=== PATIENT | male | born 1985 | race African-American/Black ===

== ENCOUNTER 2018-08-25 15:38 | Emergency (ER) | payer BC ==
[~2018-08-25] VITALS: Ht 175.3 cm; Wt 99.3 kg
[2018-08-25 16:12] LABS: URINE BILIRUBIN NEGATIVE (Negative); URINE BLOOD NEGATIVE (Negative); URINE CLARITY CLEAR; URINE COLOR YELLOW; URINE GLUCOSE-RANDOM* NEGATIVE (Negative); URINE KETONES NEGATIVE (Negative); URINE LEUKOCYTES-REFLEX NEGATIVE (Negative); URINE NITRITE-REFLEX NEGATIVE (Negative); URINE PROTEIN (DIPSTICK) NEGATIVE (Negative); URINE SPECIFIC GRAVITY >= 1.030 (1.005-1.035); URINE UROBILINOGEN 0.2 E.U./dl (0.2-1.0)
[2018-08-25 17:02] LABS: ABSOLUTE NEUTROPHILS 3.3 thou/uL (1.4-8.2); BASOPHILS 0.9 % (0.0-2.0); HEMATOCRIT 50.8 % (42.0-52.0); HEMOGLOBIN 16.9 gm/dL (14.0-18.0); MCH 27.5 pg (26.0-34.0); MCHC 33.2 g/dL (28.0-37.0); MONOCYTES 7.2 % (1.0-8.0); PLATELET COUNT 220 thou/uL (150-400); POLYS 52.9 % (36.0-66.0); RBC 6.13 mil/uL (4.50-6.00); RDW 13.5 % (10.5-14.5); WBC 6.3 thou/uL (4.0-11.0)
[2018-08-25 17:10] LABS: CALCIUM 9.4 mg/dL (8.5-10.1); CREATININE 1.5 mg/dL (0.7-1.3); POTASSIUM 4.1 mmol/L (3.5-5.1)
[2018-08-25] MEDS ORDERED: ULTRAM 50MG TAB50 MG PO ×2 (18:00→18:11)
[2018-08-25 18:22] VITALS: BP 119/70
== END 2018-08-25 18:24 | disposition home or self-care (01) ==
LOC: ER 15:38
PROVIDERS: Emergency Medicine
DX: R10.32 Left lower quadrant pain (principal); N50.812 Left testicular pain; F17.200 Nicotine dependence, unspecified, uncomplicated; R61 Generalized hyperhidrosis

== ENCOUNTER → 2018-09-28 | Outpatient (CLI) | payer BC ==
[~2018-09-28] MED LIST: ULTRAM 50MG TAB50 MG PO
== END ==
LOC: CAT 08:11
DX: K44.9 Diaphragmatic hernia without obstruction or gangrene (principal)